=== PATIENT | female | born 1990 | race Caucasian/White ===

== ENCOUNTER → 2019-03-08 | Day surgery (SDC) | payer OTHER ==
[~2019-03-08] MED LIST: ACETAMINOPHEN 1000 MG/100 ML 100 ML IV ONE; ATORVASTATIN CA10 MG PO; DEXAMETHASONE SOD PHOS INJ 4 MG/ML VIAL ONE; EPINEPHRINE HCL 1:1000 1ML 1 MG/ML AMP ONE; FENTANYL CITRATE/PF 100MCG/2 ML INJ ONE; LIDOCAINE 1% W/EPINEPHRINE 20 ML VIAL ONE; LIDOCAINE HCL (LTA) 4 ML SOLN ONE; LIDOCAINE HCL 2% JELLY 5 ML TUBE ONE; LIDOCAINE HCL 2% LOCAL INJ 5 ML SDV VIAL INJ ONE; MIDAZOLAM HCL 2 MG/2 ML VIAL ONE; ONDANSETRON HCL INJ 2MG/ML 2ML 2 MG/ML VIAL ONE; PANTOPRAZOLE SO40 MG PO; PROPOFOL IV EMULSION 10 MG/ML 20 ML VIAL ONE; PROPRANOLOL HCL40 MG PO; SCOPOLAMINE 1.5 MG PATCH ONE; SEVOFLURANE INHAL SOLN 250 ML PEN BTL ONE
--- NOTE | 2019-03-08 04:25 | Pre Op History & Physical ---
DATE OF SURGERY: March 08, 2019. CHIEF COMPLAINT: Nasal obstruction and nasal deformity. HISTORY OF PRESENT ILLNESS: This 28-year-old female has history of nasal obstruction, ongoing for many years. The patient has been treated with topical nasal steroid, decongestant, antibiotics with no improvement. A recent CT scan of paranasal sinuses done before surgery showed the patient has a deviated septum on the right side with no mucosal thickening in the paranasal sinus cavities. REVIEW OF SYSTEMS: System review showed no recent cardiovascular, respiratory, or GI problem. PAST MEDICAL HISTORY: The patient has no significant medical problem. PAST SURGICAL HISTORY: The patient has previous bilateral myringotomy tubes and tonsillectomy. ALLERGIES: SHE HAS NO KNOWN ALLERGY TO MEDICATION. MEDICATIONS: She is on . SOCIAL HISTORY: She is a nonsmoker. Social drinker. FAMILY HISTORY: Noncontributory. PHYSICAL EXAMINATION: VITAL SIGNS: On examination, the patient's vital signs were within normal limits. HEENT: Ear exam showed normal tympanic membranes bilaterally. Nasal exam showed deviated nasal septum to the right of about 30%. Oropharynx and oral cavity show no tonsils noted. NECK: Showed no lymph node or thyroid palpable. CHEST: Showed good air entry bilaterally. CARDIOVASCULAR: Showed S1 and S2. No murmur noted. ASSESSMENT AND PLAN: Mrs. Grover has nasal obstruction, nasal deformity, secondary to deviated nasal septum. Suggested treatment is septoplasty and other necessary procedure. Complication of procedure includes, but not limited to bleeding, infection, CSF leak, blindness, double vision, meningitis, septal perforation, septal hematoma, persistent nasal obstruction, persistent nasal crusting, nasal deformity, recurrence of the sinus problem, persistent nasal obstruction. Alternatives will be continue observation, continue antibiotic therapy, topical nasal steroid therapy, systemic steroid therapy decongestant. The patient has elected to undergo surgical procedure. MD YVETTE Umanzor/BARON /[id number] cc: Augustine Benavides
[2019-03-08 11:15] VITALS: BP 100/69
--- NOTE | 2019-03-08 18:09 | Operative Report ---
DATE OF PROCEDURE: 03/08/2019 SURGEON: Horacio Velazquez MD CHIEF COMPLAINT: Nasal obstruction, nasal deformity. POSTOPERATIVE DIAGNOSIS: Nasal obstruction, nasal deformity. PROCEDURE: Septoplasty. ANESTHESIA: Anesthesiology group. INDICATIONS: This 28-year-old female has history of nasal obstruction. The patient's condition has been treated with topical nasal steroid, decongestant, antibiotics with no improvement. On examination, she was noted to have a deviated nasal septum to the right side about 30% anteriorly. It was decided septoplasty and other necessary procedure will be beneficial for her. DESCRIPTION OF PROCEDURE: The patient was taken to the operating room, put under general anesthesia and endotracheally intubated. The nose was injected with 1% Xylocaine with 1:100,000 epinephrine for hemostasis. An epinephrine-soaked pledget was inserted in the nose and subsequently removed. The left paranasal sinuses were approached first. Middle turbinate was medialized. These were subsequently removed. A septoplasty was performed. Jason-transection incision was done on the left side. Mucoperichondrial flap was elevated on the left. Bony cartilaginous junction was encountered, this was . Perpendicular plate of ethmoid was transected, this was removed along with the vomer. The septal spur cartilaginous portion was removed using a [place] elevator and a bony spur removed using a 4 mm straight chisel. The quadrangular cartilage after being freed from posterior inferior constrain, was able to straighten back in the midline. The hemitransfixion incision was closed using 4-0 chromic suture in interrupted fashion. Septal whipstitch was done using 4-0 plain gut suture to reapproximate the mucoperichondrial flap and prevent septal hematoma formation. No was noted. The patient tolerated the above procedure well with estimated blood loss about 10 mL. She was given 20 mg of Decadron intraoperatively. The patient was able to be transferred to recovery room in stable condition. Horacio Velazquez MD DKH/MODL /[id number]
== END | disposition home or self-care (01) ==
LOC: OR 07:46
PROVIDERS: ATTEND Otolaryngology Otolaryngology/Facial Plastic Surgery
DX: J34.2 Deviated nasal septum (principal); J32.9 Chronic sinusitis, unspecified; Z01.810 Encounter for preprocedural cardiovascular examination; Z01.812 Encounter for preprocedural laboratory examination
CPT/HCPCS: 30630; 81025; 88300; 93005; J0131; J0171; J1100; J2001 ×2; J2250; J2405; J2704; J3010